=== PATIENT | male | born 1945 | race Caucasian/White ===

== ENCOUNTER 2017-01-13 13:14 | Emergency (ER) | payer MEDICARE, OTHER ==
[2017-01-13 14:03] LABS: EOSINOPHIL 3.5 % (0-7); HCT 49.3 % (42.0-52.0); HGB 16.6 g/dl (13.2-18.0); LYMPHOCYTE 25.1 % (15-48); MCH 30.3 pg (25.0-31.0); MCHC 33.7 g/dL (32.0-36.0); MONOCYTE 7.7 % (0-12); MPV 11.3 fL (6.0-9.5); NEUTROPHIL 62.7 % (41-80); PLT 193 K/uL (150-400); RBC 5.48 M/uL (4.70-6.00); RDW 13.6 % (11.5-14.0)
[2017-01-13 14:17] LABS: ALBUMIN 4.4 g/dL (3.4-4.8); BILIRUBIN - TOTAL 0.5 mg/dL (0.1-1.0); CREATININE 0.9 mg/dL (0.7-1.2); POTASSIUM 4.3 mmol/L (3.5-5.1); TOTAL PROTEIN 7.4 g/dL (6.4-8.3)
[2017-01-13 15:04] LABS: BILIRUBIN NEGATIVE (NEGATIVE); BLOOD NEGATIVE Ery/uL (NEGATIVE); CLARITY CLEAR (CLEAR); COLOR YELLOW (YELLOW); GLUCOSE (U) NORMAL (NORMAL); KETONE (U) NEGATIVE (NEGATIVE); LEUKOCYTES NEGATIVE Leu/uL (NEGATIVE); NITRITE NEGATIVE (NEGATIVE); PROTEIN NEGATIVE (NEGATIVE); UROBILINOGEN 0.2 mg/dL (0.2-1.0)
== END 2017-01-13 15:23 | disposition home or self-care (01) ==
LOC: FER 13:14
PROVIDERS: Emergency Medicine
DX: G51.0 Bell's palsy (principal); E03.9 Hypothyroidism, unspecified; H57.9 Unspecified disorder of eye and adnexa; R29.703 NIHSS score 3; F17.229 Nicotine dependence, chewing tobacco, with unspecified nicotine-induced disorders
CPT/HCPCS: 36415; 70450; 71010; 80053; 81003; 84443; 84484; 85025; 86617; 93005